=== PATIENT | male | born 1990 | race Caucasian/White ===

== ENCOUNTER 2017-12-18 19:30 | Emergency (ER) | payer MEDICAID ==
[2017-12-18] MEDS ORDERED: Ketorolac 60 MG/2 ML SDV IM ONE (20:00)
--- NOTE | 2017-12-19 11:21 | CR ---
INDICATION: Fell and twisted left ankle, lateral swelling. LEFT ANKLE: Three views of the left ankle revealed soft tissue swelling overlying the lateral malleolus. The ankle mortise appears to be intact without fracture, dislocation, or other significant appearing bone or joint abnormality, except for question of some minimal hypertrophic change suggesting post-traumatic osteoarthritis in this age group. IMPRESSION: 1. Lateral soft tissue swelling. 2. No acute fracture or dislocation. 3. 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 [id number]
== END 2017-12-18 21:00 | disposition home or self-care (01) ==
LOC: FB.ED 19:30
DX: S93.402A Sprain of unspecified ligament of left ankle, initial encounter (principal); S93.602A Unspecified sprain of left foot, initial encounter; W19.XXXA Unspecified fall, initial encounter; Y93.64 Activity, baseball
CPT/HCPCS: 73610; 96372; 99283; J1885